=== PATIENT | male | born 1980 | race Caucasian/White ===

== ENCOUNTER 2023-01-05 20:26 | Emergency (ER) | payer SELFPAY ==
[~2023-01-05] VITALS: Ht 177.8 cm; Wt 104.3 kg
[2023-01-05 20:30] VITALS: BP 127/86; RESP 16; TEMP 98.2
[2023-01-05 21:20] VITALS: BP 127/86; RESP 16; TEMP 98.2
== END 2023-01-05 21:20 ==
LOC: MED 20:26
DX: Z02.89 Encounter for other administrative examinations (principal); V49.88XA Car occupant (driver) (passenger) injured in other specified transport accidents, initial encounter; Y93.89 Activity, other specified; Y92.89 Other specified places as the place of occurrence of the external cause; Y99.8 Other external cause status
CPT/HCPCS: 99283